=== PATIENT | male | born 2005 | race Caucasian/White ===

== ENCOUNTER 2025-01-28 21:56 | Emergency (ER) | payer OTHER, BC ==
[2025-01-28] MEDS ORDERED: Sodium Chloride 0.9% 2.5 ML Syringe FLUSH PRN (22:16)
[2025-01-28] MEDS ORDERED: Sodium Chloride 0.9% 10 ML Syringe FLUSH PRN (22:16)
[2025-01-28 22:24] LABS: MEAN PLATELET VOLUME 9.9 fL (9.4-12.4); NRBC ABSOLUTE 0.00 K/uL (0.00-0.02); NRBC PERCENT 0.0 /100WBC (0.0-0.2); PLATELET COUNT,PLT 383 K/uL (150-400); RED BLOOD CELL COUNT 5.96 M/uL (4.52-5.90); WHITE BLOOD CELL COUNT,WBC 13.53 K/uL (3.9-11.3)
[2025-01-28 22:34] LABS: A/G RATIO 1.0 (0.9-1.6); ALANINE AMINOTRANSFERASE,ALT 32 IU/L (14-63); ASPARTATE AMNIOTRANSFERASE,AST 32 IU/L (15-37); BILIRUBIN TOTAL 1.5 mg/dL (0.2-1.0); BLOOD UREA NITROGEN,BUN 10 mg/dL (7.0-18.0); CARBON DIOXIDE,CO2 28.7 mmol/L (21.0-32.0); CHLORIDE,CL 101 mmol/L (98-107); CREATININE 1.2 mg/dL (0.8-1.3); EST CRCL DRUG DOSING (CG) 92.36 mL/min; ESTIMATED GFR 89 mL/min (>60); ETHANOL BLOOD MEDICAL < 3.0 mg/dL; GLUCOSE RANDOM 112 mg/dL (74-106); POTASSIUM,K 3.1 mmol/L (3.5-5.1); PROTEIN TOTAL,TP 8.3 g/dL (6.4-8.2); SODIUM,NA 139 mmol/L (136-148)
[2025-01-28] MEDS: Iopamidol 755 MG/ML 500 ML Multipack Bottle IVPUSH ONE (22:40)
[2025-01-28 22:51] LABS: ATYPICAL LYMPHOCYTES OCCASIONAL; BAND ABSOLUTE MAN 0.14; BAND PERCENT MAN 1 %; EOSINOPHILS ABSOLUTE MAN 0.14 K/uL (0.00-0.45); EOSINOPHILS PERCENT MAN 1 % (0-6); LYMPHOCYTES ABSOLUTE MAN 7.04 K/uL (1.00-4.80); LYMPHOCYTES PERCENT MAN 52 % (24-44); MONOCYTES ABSOLUTE MAN 0.68 K/uL (0.00-0.80); MONOCYTES PERCENT MAN 5 % (0-8); SEG NEUTROPHILS ABSOLUTE MAN 5.55 K/uL (1.80-7.70); SEG NEUTROPHILS PERCENT MAN 41 % (41-71)
[2025-01-28 22:55] LABS: APPEARANCE,URINE CLEAR; GLUCOSE,URINE NEGATIVE (NEGATIVE); OCCULT BLOOD,URINE MODERATE (NEGATIVE)
[2025-01-28 23:05] LABS: AMPHETAMINES SCREEN, URINE NEGATIVE (CUTOFF=500); BUPRENORPHINE SCREEN,URINE NEGATIVE (CUTOFF=10); METHADONE SCREEN, URINE NEGATIVE (CUTOFF=200); METHAMPHETAMINES SCREEN, URINE NEGATIVE (CUTOFF=500); OXYCODONE SCREEN,URINE NEGATIVE (CUT0FF=100); PCP SCREEN,URINE NEGATIVE (CUTOFF=25); THC SCREEN,URINE 20 NG/ML NEGATIVE (CUTOFF=50)
[2025-01-28 23:17] LABS: EPITHELIAL CELLS,URINE RARE (NONE-FEW)
[2025-01-28] MEDS: Lidocaine/Epineph/Tetracaine 3 ML Syringe TOP ONE (23:22)
== END 2025-01-29 00:17 | disposition home or self-care (01) ==
LOC: MW.ED 21:56
DX: S50.12XA Contusion of left forearm, initial encounter (principal); V29.408A Other motorcycle driver injured in collision with unspecified motor vehicles in traffic accident, initial encounter; Y93.89 Activity, other specified
CPT/HCPCS: 36415; 71260; 73110; 74177; 80053; 80305; 80307; 81001; 85025; 99284; A9270; J7030; Q9967; 99283